=== PATIENT | male | born 1985 | race Caucasian/White ===

== ENCOUNTER → 2019-07-19 | Outpatient (CLI) | payer BC ==
--- NOTE | 2019-07-19 11:27 | REP ---
RENAL ULTRASOUND WITH DUPLEX DOPPLER RENAL ARTERY EVALUATION: Real-time sonographic evaluation of kidneys performed. Kidneys are normal in size and echotexture, right kidney measuring 12.6 x 5.5 x 5.3 cm and left kidney 11.8 x 4.8 x 6.8 cm. There is no hydronephrosis, renal mass or nephrolithiasis. Incidental note is made of increased echotexture diffusely of the liver suggesting diffuse fatty infiltration, with mild hepatomegaly with the length of the liver 18.8 cm. Real-time ultrasound evaluation and duplex Doppler interrogation of the renal arteries is performed bilaterally. Peak systolic velocity of the abdominal aorta a the level of the renal artery is 115 cm/s. Peak systolic velocity of the main right renal artery is 166 cm/s, renal to aortic ratio is 1.44. Resistive indices are measured in the upper, middle, and lower thirds of the right kidney and range between 0.66-0.70. Acceleration times range between 0.044-0.046. Peak systolic velocity of the main left renal artery is 159 cm/s, renal to aortic ratio 1.38. Resistive indices of the left kidney range between 0.69-0.74. Acceleration times range between 0.038 and 0.044. IMPRESSION: No compelling duplex Doppler sonographic evidence of significant renal artery stenosis bilaterally. Electronically Signed by Sanjiv Rico MD 07/19/2019 04:51 P
--- NOTE | 2019-07-24 15:24 | SLEEPHOME ---
DATE OF PROCEDURE: 07/19/2019 Ordered by: Dr. Monsalve [facility] home sleep testing was performed due to concern for the obstructive sleep apnea syndrome. For testing a nocturnal T3 respiratory monitoring device was used. Continuous record was made of pulse, oxygen saturation, airflow, chest, abdominal strain and body position. 9 hours and 59 minutes of data were reviewed. There were 7 hours and 29 minutes marked as time in bed. During the interval marked time in bed there were 51 respiratory events identified of 10 seconds in duration or greater. The events were primarily obstructive and more frequently associated with the supine posture. Baseline pulse rate 60 beats per minute, pulse rate ranged 40-112. Baseline saturation 94%. During testing saturations fell to 86%. Testing was performed in both the supine and nonsupine positions. IMPRESSION Abnormal home sleep testing with repetitive respiratory events and oxygen desaturations to 86% with a respiratory event index of 6.8 is consistent with the obstructive sleep apnea syndrome. RECOMMENDATIONS As the patient's events were primarily associated in the supine posture. Position retraining for the avoidance of the supine posture is recommended. If sleep symptoms persists referral for formal sleep evaluation would be reasonable.
== END ==
LOC: M RAD 08:16
PROVIDERS: ATTEND Internal Medicine Cardiovascular Disease
DX: I10 Essential (primary) hypertension (principal)
CPT/HCPCS: 76775; 93975; G0399

== ENCOUNTER → 2021-12-30 | Outpatient (REF) | payer BC | LOC: M SMT 17:26 | PROVIDERS: ATTEND Urology | DX: Z30.2 Encounter for sterilization (principal) ==